=== PATIENT | female | born 1995 | race Caucasian/White ===

== ENCOUNTER → 2018-07-25 16:25 | Outpatient (CLI) | payer SELFPAY ==
[2018-07-25 21:39] LABS: Chlamydia Trachomatis by PCR Negative (Negative); Neisserai gonorrhoeae by PCR Negative (Negative); Probe Check PASS; Sample Adequacy Control PASS; Specimen Processing Control PASS
== END ==
LOC: LABSPEC 16:27
PROVIDERS: Visit Provider Obstetrics & Gynecology
DX: Z11.3 Encounter for screening for infections with a predominantly sexual mode of transmission (principal)
CPT/HCPCS: 87491; 87591

== ENCOUNTER → 2018-08-23 14:38 | Outpatient (CLI) | payer SELFPAY ==
[2018-08-23 15:44] LABS: Color, Urine Yellow (Yellow); Glucose, Dipstick Normal (Normal); Ketone-Dipstick 15 mg/dl (Negative); Leukocyte Esterase-Dipstick 500 /ul (Negative); Nitrite-Dipstick Negative (Negative); Occult Blood-Urine Negative /ul (Negative); Protein-Dipstick Negative (Negative); Urine Bilirubin Dipstick Negative (Negative); Urine Clarity Clear (Clear); Urine Urobilinogen Normal (Normal)
[2018-08-23 15:51] LABS: COTININE Drug Screen Negative (<200 ng/mL)
[2018-08-23 17:21] LABS: Absolute Lymphocyte Count 2.97 X10^3/ul (0.83-4.51); Basophil# 0.02 X10^3/uL; Basophil% 0.2 % (0-1); Eosinophil# 0.42 X10^3/uL; Eosinophils% 3.2 % (0-5); Hemoglobin 13.6 g/dl (12.0-15.0); Lymphocyte # 2.97 X10^3/ul (4.0); Lymphocyte % 22.5 % (19-41); Mean Corp Hgb Conc 32.4 g/gl (32-36); Mean Corpuscular Volume 92.7 fL (81-99); Mean Platelet Vol. 10.1 fl (6.2-12.0); Monocyte# 0.77 X10^3/uL; Monocyte% 5.8 % (0-10); Neutrophil # 8.97 X10^3/uL (2.7-7.7); Neutrophil % 68.1 % (47-70); Platelet Count 285 K/mm3 (150-450); RBC Distribution Width CV 13.4 % (11.6-14.6); RBC Distribution Width SD 45.1 fl (35.1-43.9); Red Blood Count 4.53 M/mm3 (4.2-5.4); White Blood Count 13.2 K/mm3 (4.4-11.0)
[2018-08-23 17:22] LABS: POSITIVE COUNT NO; POSITIVE DIFFERENTIAL NO; POSITIVE MORPHOLOGY NO
[2018-08-23 17:36] LABS: Thyroid Stim Hormone (TSH) 0.41 uIU/mL (0.358-3.74)
[2018-08-23 18:16] LABS: HIV - WCH Non-Reactive (Nonreactive); Rubella IgG > 500.0 IU/mL
[2018-08-25 12:19] LABS: HEPATITIS B SURFACE AG Negative (Negative); Hep C Antibodies <0.1 s/co ratio (0.0-0.9)
[2018-08-26 03:50] LABS: Prenatal RPR NONREACTIVE (NONREACTIVE)
== END ==
LOC: WOBLAB 14:42
PROVIDERS: Visit Provider Obstetrics & Gynecology
DX: Z34.81 Encounter for supervision of other normal pregnancy, first trimester (principal)
CPT/HCPCS: 36415; 80307; 81002; 84443; 85025; 86703; 86762; 86803; 86850; 87340

== ENCOUNTER → 2018-12-20 11:13 | Outpatient (CLI) | payer MEDICAID, SELFPAY ==
[2018-12-20 13:56] LABS: Hematocrit 38.1 % (37-47); Hemoglobin 12.1 g/dl (12.0-15.0); Mean Corp Hgb Conc 31.8 g/gl (32-36); Mean Corpuscular Hgb 30.9 pg (27.0-32.0); Mean Corpuscular Volume 97.4 fL (81-99); Mean Platelet Vol. 10.3 fl (6.2-12.0); Platelet Count 275 K/mm3 (150-450); RBC Distribution Width CV 13.8 % (11.6-14.6); RBC Distribution Width SD 48.6 fl (35.1-43.9); Red Blood Count 3.91 M/mm3 (4.2-5.4); White Blood Count 13.1 K/mm3 (4.4-11.0)
[2018-12-20 13:58] LABS: Scan Indicated on CBC? Y/N NO
[2018-12-20 14:06] LABS: Glucose Challenge Gest 1H 50g 75 mg/dL (70-140)
== END ==
PROVIDERS: Visit Provider Obstetrics & Gynecology
DX: Z34.83 Encounter for supervision of other normal pregnancy, third trimester (principal)
CPT/HCPCS: 36415; 82950; 85027; 86850

== ENCOUNTER → 2019-02-16 | Outpatient (CLI) | payer MEDICAID, SELFPAY | END | disposition home or self-care (01) | LOC: LABSPEC 13:31 | PROVIDERS: Visit Provider Obstetrics & Gynecology | DX: Z36.85 Encounter for antenatal screening for Streptococcus B (principal) | CPT/HCPCS: 87081 ==

== ENCOUNTER 2019-03-16 07:20 | Inpatient (IN) | payer MEDICAID, SELFPAY ==
--- NOTE | 2019-03-16 08:03 | PCM.HPOB.BLA ---
History and Physical Date of Admission: 03/16/19 OB HISTORY AND PHYSICAL EXAMINATION History of this : 23 yo female Ab1 with EDC 03/11/2019 by 11 weeks 3 days Ultrasound, presents to Labor and Delivery at 40 5/7 wk EGA with CC of SROM at 0630 this am, gush of clear fluid. care remarkable for - Rh NEGATIVE O negative. Rubella immune Pertinent Past Medical History: Neg. Allergies: Amoxicillin Medications: During - + DHA 28 mg iron- 975 mcg-200 mg combo pack; Flovent HFA 110 mcg/actuation aerosol inhaler; hydrocortisone 1 % topical cream Review of Systems: Non-contributory PHYSICAL EXAMINATION General Appearance: 23 yo female in no acute distress Vital Signs: AF, VSS Heart: RRR without rubs or gallops Lungs: CTA x 2 Breasts: deferred Abdomen: gravid Pelvis: Cervix: 4/75/-3 posterior Presentation: cephalic Size: AGA Movement: present Heart: 120-130s avg variability. Accels noted Category I tracing UCs ? rare UC noted on strip Impression /Plan: Intrauterine . 40 5/7 wk SROM. ROM plus test POSITIVE. GBS neg. Early labor, no regular UC. Begin pitocin prn for augmentation of labor. Anticipate . Plans no epidural at this point, but may elect later. See Progress Notes for Changes: Physician's Signature: Date:
[2019-03-16 08:18] LABS: ROM Internal Control Test YES-OK TO RESULT pt. (Internal QC)
[2019-03-16 08:19] LABS: ROM Patient Test POSITIVE (Negative)
[2019-03-16 08:20] VITALS: BMI 32.2
[2019-03-16] MEDS: Lactated Ringers 1,000 ML 50 ML IV ×2 (08:51→15:06)
[2019-03-16 09:25] LABS: Absolute Lymphocyte Count 2.67 X10^3/ul (0.83-4.51); Absolute Neutrophil Count 10.3 X10^3/uL (2.0-7.7); Basophil# 0.01 X10^3/uL; Basophil% 0.1 % (0-1); Eosinophil# 0.45 X10^3/uL; Eosinophils% 3.1 % (0-5); Hematocrit 37.9 % (37-47); Hemoglobin 12.4 g/dl (12.0-15.0); Lymphocyte # 2.67 X10^3/ul (4.0); Lymphocyte % 18.3 % (19-41); Mean Corp Hgb Conc 32.7 g/gl (32-36); Mean Corpuscular Hgb 30.5 pg (27.0-32.0); Mean Corpuscular Volume 93.1 fL (81-99); Mean Platelet Vol. 10.5 fl (6.2-12.0); Monocyte# 1.11 X10^3/uL; Monocyte% 7.6 % (0-10); Neutrophil # 10.27 X10^3/uL (2.7-7.7); Neutrophil % 70.4 % (47-70); Platelet Count 228 K/mm3 (150-450); RBC Distribution Width CV 13.8 % (11.6-14.6); RBC Distribution Width SD 46.5 fl (35.1-43.9); Red Blood Count 4.07 M/mm3 (4.2-5.4); White Blood Count 14.6 K/mm3 (4.4-11.0)
[2019-03-16 09:27] LABS: POSITIVE COUNT NO; POSITIVE DIFFERENTIAL NO; POSITIVE MORPHOLOGY NO
[2019-03-16] MEDS: Oxytocin 30 units/NS 500 ml 30 UNITS/500 ML IV.SOLN IV (10:56)
[2019-03-16] MEDS: Nalbuphine 10 MG/ML Ampul IV (14:19)
[2019-03-16] MEDS: Oxytocin 30 units/NS 500 ml 30 UNITS/500 ML IV.SOLN 334 UNITS IV (16:01)
[2019-03-16] MEDS: Oxytocin 30 units/NS 500 ml 30 UNITS/500 ML IV.SOLN 167 UNITS IV (16:45)
--- NOTE | 2019-03-16 19:10 | PCM.DCVAG ---
Discharge Diet: No Restrictions Discharge Activity: May Shower, May Take a Tub Bath Return to work on:: 05/01/19 May resume sexual activity in: 4-6 weeks Additional Activity Instructions:: Nothing in the vagina for 4-6 weeks. You may return to work/school in 6 weeks. Additional Instructions: If you experience any of the following, contact your healthcare provider. Bleeding that soaks a pad every hour for 2 hours Fever 100.4 or higher Unrelieved abdominal pain Problems urinating (including inability to urinate or burning while urinating). Visual changes Severe headache Flu-like symptoms Pain or redness in one of both of your breasts Pain, warmth, tenderness or swelling in your legs, especially the calf area Frequent nausea and vomiting Symptoms of depression or anxiety If you experience any of the following, call 911 or go to the nearest Emergency Room. Chest pain Problems breathing Seizure activity Partial or complete paralysis of a body part, slurred speech, weakness or drooping of the face, or a sudden inability to walk or hold your balance Allergies/Adverse Reactions: Allergies amoxicillin Allergy (Verified 03/16/19 08:21) Rash Medications to take at Discharge Vits [Prenatabs FA] 1 tablet PO DAILY 03/16/19 Please Follow Up With: Nikky Henning MD - [phone] When: Call to make an appointment with your doctor in 6 weeks. Primary Care Physician: Care Physician,No Primary [Primary Care Provider] - Test Results: Test results from this visit will be discussed in further detail at your follow-up appointment, if applicable. Proposed Discharge Date: 03/18/19
--- NOTE | 2019-03-16 19:11 | DCINST_ITS ---
Discharge Diet: No Restrictions Discharge Activity: May Shower, May Take a Tub Bath Return to work on:: 05/01/19 May resume sexual activity in: 4-6 weeks Additional Activity Instructions:: Nothing in the vagina for 4-6 weeks. You may return to work/school in 6 weeks. Additional Instructions: If you experience any of the following, contact your healthcare provider. * Bleeding that soaks a pad every hour for 2 hours * Fever 100.4 or higher * Unrelieved abdominal pain * Problems urinating (including inability to urinate or burning while urinating). * Visual changes * Severe headache * Flu-like symptoms * Pain or redness in one of both of your breasts * Pain, warmth, tenderness or swelling in your legs, especially the calf area * Frequent nausea and vomiting * Symptoms of depression or anxiety If you experience any of the following, call 911 or go to the nearest Emergency Room. * Chest pain * Problems breathing * Seizure activity * Partial or complete paralysis of a body part, slurred speech, weakness or drooping of the face, or a sudden inability to walk or hold your balance Allergies/Adverse Reactions: Allergies amoxicillin Allergy (Verified 03/16/19 08:21) Rash Medications to take at Discharge Vits [Prenatabs FA] 1 tablet PO DAILY 03/16/19 Please Follow Up With: Nikky Henning MD - [phone] When: Call to make an appointment with your doctor in 6 weeks. Primary Care Physician: Care Physician,No Primary [Primary Care Provider] - Test Results: Test results from this visit will be discussed in further detail at your follow- up appointment, if applicable. Proposed Discharge Date: 03/18/19
--- NOTE | 2019-03-16 19:11 | PCM.OPRPT ---
Vaginal Delivery Maternal Presentation: Spontaneous Rupture of Membranes 40 5/7 wk SROM. Method of Induction: Pitocin Amniotic Membrane Rupture Type: Spontaneous at home Rupture of Membrane time: 629 Amniotic Fluid Description: Clear Final JOHN: 03/11/19 Final JOHN Source: US <20 weeks Gestational age: 40 Weeks and 5 Days Date of Procedure: 03/16/19 Pre-Operative Diagnosis: 40 5/7 wk SROM Post-Operative Diagnosis: Same Surgery/ Procedure Performed: Spontaneous Vaginal Delivery Type of Anesthesia: None Description of Procedure: of a fenton viable female over intact perineum to laceration. Head delivered EDWARD. Loose nuchal cord reduced at delivery. Scalp lead removed. Shoulders delivered rapidly after VTX. OP and nares bulb suctioned immediately after delivery. Infant to maternal abdomen for warming and stimulation. Routine cord blood collected for typing. FEMALE 2713 gm Ap 9/9 PP exam: 2nd deg vaginal laceration noted. Repaired to hemostatic intact with 1% lidocaine local and 3-0 Vicryl No other lacerations noted. Placenta delivered by spont expulsion. 3V cord, normal appearing placenta with trailing membranes. EBL 200 c Pt and tolerated delivery well. to recovery ,stable condition Ray jose and needle counts correct times two. Presentation: Vertex, EDWARD Placental Delivery Description: Spontaneous, Expressed Placenta Disposition: [facility] Cord Vessel Description: 3 Vessels Cord Entanglement: Around neck x 1, loose Estimated Blood Loss: 200 Infant A gender: Female (1 minute): 9 (5 minute): 9 Episiotomy Description: None Laceration: Midline, Vaginal Extension/lac, 2nd degree Medications given after delivery: IV Pitocin Complications: None
[2019-03-16 20:00] VITALS: BP 116/63; PULSE 94; RESP 16; TEMP 36.8
[2019-03-16] MEDS: 0.9% Saline Lock 10 ML Syringe IV (20:09)
[2019-03-16] MEDS: Ibuprofen 600 MG Tablet PO (23:31)
[2019-03-16 23:32] VITALS: BP 118/56; PULSE 92; RESP 18; TEMP 36.4
[2019-03-17 04:19] VITALS: BP 111/53; PULSE 79; RESP 18; TEMP 36.6
--- NOTE | 2019-03-17 06:07 | PN.OBGYN_ITS ---
Subjective: PPD#1 Sleeping, rouses to voice and touch. Bottle feeding. No c/o voiced. - Physical Exam General: Cooperative, No apparent distress HEENT: Atraumatic Neck: Supple Abdomen: Soft - Fundus firm NT at 1-2 cm inferior to umbilicus Neurological: Cranial nerves II-XII grossly intact Psych/Mental Status: Normal Affect Vital Signs Temp Pulse Resp BP 98 F 79 18 111/53 L 03/17/19 04:19 03/17/19 04:19 03/17/19 04:19 03/17/19 04:19 Oxygen Delivery Method Room Air Weight: 79.9 kg Body Mass Index (BMI) 32.2 Intake and Output for Last 24 Hours 03/15/19 03/16/19 03/17/19 23:59 23:59 23:59 Intake Total 1450 / 1450 Output Total 600 / 600 Balance 850 / 850 Laboratory Tests Past 24 Hrs 03/16/19 03/16/19 03/16/19 07:45 08:50 08:50 WBC 14.6 H RBC 4.07 L Hgb 12.4 Hct 37.9 MCV 93.1 MCH 30.5 MCHC 32.7 RDW 13.8 RDW Differential 46.5 H Plt Count 228 MPV 10.5 Immature Gran % (Auto) 0.500 Neut % (Auto) 70.4 H Lymph % (Auto) 18.3 L [place] % (Auto) 7.6 Eos % (Auto) 3.1 Baso % (Auto) 0.1 Absolute Neuts (auto) 10.3 H Absolute Lymphs (auto) 2.67 Total Counted Not Reportable Vag Amniotic Fld Detect POSITIVE H Blood Type O NEGATIVE Antibody Screen NEGATIVE Medical Necessity - Tobacco Use Smoking Status: Never smoker Assessment/Plan PPD#1 Stable pp. Continue care.
[2019-03-17 08:00] VITALS: BP 117/65; PULSE 85; RESP 16; TEMP 36.5; O2SAT 98
[2019-03-17 14:00] VITALS: BP 122/67; PULSE 93; RESP 16; TEMP 36.6; O2SAT 99
[2019-03-17] MEDS: Ibuprofen 600 MG Tablet PO (17:04)
[2019-03-17] MEDS: Prenatal Vits Tablet 1 TABLET PO (17:04)
[2019-03-17 18:00] VITALS: BP 123/65; PULSE 90; RESP 16; TEMP 36.7; O2SAT 99
[2019-03-17 20:38] VITALS: BP 130/72; PULSE 81; RESP 16; TEMP 36.7; O2SAT 98
[2019-03-18 02:00] VITALS: BP 122/77; PULSE 71; RESP 16; TEMP 36.3; O2SAT 97
[2019-03-18] MEDS: Ibuprofen 600 MG Tablet PO (06:28)
[2019-03-18] MEDS: Senna/Docusate Sodium 1 Tablet PO (06:29)
[2019-03-18 09:00] VITALS: BP 126/59; PULSE 68; RESP 16; TEMP 36.4
--- NOTE | 2019-03-18 09:54 | PCM.PN.OB ---
Subjective: Patient without complaints. Minimal vaginal bleeding. Breast-feeding going well. Ready to go home today. - Physical Exam Vital Signs Temp Pulse Resp BP Pulse Ox 97.3 F L 71 16 122/77 H 97 03/18/19 02:00 03/18/19 02:00 03/18/19 02:00 03/18/19 02:00 03/18/19 02:00 Oxygen Delivery Method Room Air Weight: 176 lb 2.389 oz Body Mass Index (BMI) 32.2 Intake and Output for Last 24 Hours 03/16/19 03/17/19 03/18/19 23:59 23:59 23:59 Intake Total 1450 / 1450 Output Total 600 / 600 Balance 850 / 850 Medical Necessity - Tobacco Use Smoking Status: Never smoker Assessment/Plan Doing well day #2. Will release to home with routine instructions.
== END 2019-03-18 11:45 | disposition home or self-care (01) | DRG 560 ==
PROVIDERS: Admitting Provider Obstetrics & Gynecology; Referring Provider Obstetrics & Gynecology; Visit Provider Obstetrics & Gynecology
DX: O48.0 Post-term pregnancy (principal); Z3A.40 40 weeks gestation of pregnancy; O69.81X0 Labor and delivery complicated by cord around neck, without compression, not applicable or unspecified; O71.4 Obstetric high vaginal laceration alone; Z37.0 Single live birth
CPT/HCPCS: 59025; 59050; 84112; 85025; 86850; 86900; 99218; J7120; A4216; G0378

== ENCOUNTER → 2019-04-24 | Outpatient (CLI) | payer MEDICAID, SELFPAY ==
[2019-05-01 15:05] LABS: HPV Reflexed? NOT INDICATED; HPV Rflx Negative
== END | disposition home or self-care (01) ==
LOC: LABSPEC 13:56
PROVIDERS: Visit Provider Obstetrics & Gynecology
DX: Z12.4 Encounter for screening for malignant neoplasm of cervix (principal)
CPT/HCPCS: 88175; G0145